=== PATIENT | male | born 1995 | race Caucasian/White ===

== ENCOUNTER 2025-03-08 03:59 | Emergency (ER) | payer MEDICAID ==
[~2025-03-08] VITALS: Ht 170.2 cm; Wt 61.2 kg
[2025-03-08 05:43] VITALS: BP 118/76; TEMP 98.3
[2025-03-08] MEDS ORDERED: DOXY100C2 PO (06:31)
[2025-03-08] MEDS ORDERED: CEFTRIAXONE 500 MG VIAL ONE (06:33)
[2025-03-08] MEDS ORDERED: PENICILLIN G BENZATHINE 2.4 MMU/4 ML ML IM ONE (06:33)
[2025-03-08] MEDS ORDERED: LIDOCAINE /MPF 1% VIAL 5 ML VIAL ONE (06:34)
[2025-03-08] MEDS: PENICILLIN G BENZATHINE 2.4 MMU/4 ML ML IM ONE (06:56)
[2025-03-08] MEDS: CEFTRIAXONE 500 MG VIAL IM ONE (06:56)
[2025-03-08 06:59] LABS: APPEARANCE,URINE CLEAR (CLEAR); BILIRUBIN,URINE NEGATIVE (NEGATIVE); BLOOD, URINE NEGATIVE Ery/uL (NEGATIVE); COLOR,URINE YELLOW (YELLOW); KETONES,URINE NEGATIVE (NEGATIVE); LEUKOCYTE ESTERASE ,URINE NEGATIVE (NEGATIVE); NITRITE, URINE NEGATIVE (NEGATIVE); PH,URINE 6.5 (5.0-8.0); PROTEIN,URINE NEGATIVE (NEGATIVE); UGLUCOSE NEGATIVE (NEGATIVE)
[2025-03-08 07:00] VITALS: O2SAT 97
[2025-03-08 07:11] LABS: ADD URINE CULTURE NO; BACTERIA,URINE Rare /HPF (None Seen); RBC,URINE 0-2 /HPF (0-2); SQUAMOUS EPITHELIAL CELL,UR Few /HPF (None Seen); WBC,URINE 0-2 /HPF (0-3)
[2025-03-10 02:07] LABS: CHLAMYDIA TRACHOMATIS NAA Negative (Negative); NEISSERIA GONORRHOEAE NAA Negative (Negative)
== END 2025-03-08 07:00 | disposition home or self-care (01) ==
LOC: ER 04:04
DX: R21 Rash and other nonspecific skin eruption (principal)
CPT/HCPCS: 99284; 96372; 87086; 81001; 87491; 87591; J0558; J0696; J3490